=== PATIENT | female | born 1980 | race Caucasian/White ===

== ENCOUNTER → 2016-05-19 | Day surgery (SDC) | payer OTHER ==
[~2016-05-19] MED LIST: CLINDAMYCIN PHOS 900 MG/6 ML VIAL ONE; KETOROLAC TROMETHAMINE 30 MG/ML (IVP) VIAL ONE; LACTATED RINGER'S 1000 ML INJ 1,000 ML ONE; LIBRAX PO; LIDOCAINE 1%/EPINEPHrine 1:100,000 SOLN 30 ML VIAL ONE; MIDAZOLAM HCL 2 MG/2 ML VIAL ONE; OMEP20TA PO; ONDANSETRON HCL 4 MG/2 ML VIAL IV PUSH ONE; PRIL40CA PO; PROPOFOL 200 MG/20 ML AMP IV ONE; SODIUM BICARBONATE 8.4% INJ 50 ML ONE; SODIUM CHLORIDE 0.9% SOLN 100 ML BAG IV ONE; Z.0.BCPILL PO
--- NOTE | 2016-05-23 22:02 | MP ---
cc: MOOSE ROD DATE OF SURGERY 05/19/16 PREOPERATIVE DIAGNOSIS 1. Right upper neck lipoma mass attached to the occipitalis muscle. 2. Middle nape of the neck skin lesion POSTOPERATIVE DIAGNOSIS 1. Right upper neck lipoma mass attached to the occipitalis muscle. 2. Middle nape of the neck skin lesion OPERATION 1. Excision upper neck hairline lipoma 4 x 3 cm attached to the occipitalis muscle 2. Excision lesion middle nape of the neck 1.5 x [address] Desiree Rod ANESTHESIA General INDICATIONS A 35-year-old white female with the above two growths, has been present for several months and becoming larger and more symptomatic. The skin lesion is constantly itchy and does not go away for a couple of months as well. 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 The patient was explained the overall surgery details and possible risks, complications, pros and cons and she is willing to go ahead with the surgery. The lipoma may be multilobulated, dumbbell shape or through the fascia and there is a chance of recurrence in the future. The pathology of the second lesion will decide if there is any further treatment needed. PROCEDURE IN DETAIL The patient was brought to the operating room was given supine position. Anesthesia was started. She was turned left side down with adequate padding. Prep and drape was done. The time-out was called and completed. Preoperative markings were reinforced. Local anesthetic was used in both areas. The neck hairline lipoma was excised through a long oblique incision to match the direction of the lipoma itself. The lipoma was easily exposed on the outer surface and carefully dissected on the periphery looking for neurovascular bundles in particular. They were not encountered. The base of the lipoma was adherent to the fascia over the occipitalis muscle and this fascia was taken with the specimen taking a small portion of the muscle with the specimen as well. The entire area was double-checked for any obvious lobulated lesions. A couple of small spots were removed and no deep lipoma beyond the occipitalis muscle and the fascia was noted. The area was closed with three-point deeper sutures to close the fascia and the dermis and also the skin was closed with a subcuticular running Prolene. The second lesion was excised in an oval fashion down to the underlying fat and the cavity again closed with Vicryl sutures. A single outside mattress suture was also placed to approximate the skin. The patient remained stable. Intraoperative blood loss less than a couple of cc. No complications. signed, not fully reviewed MD ALICIA Farias/ /11:13 AM /9:55 PM MTDNancy
== END | disposition home or self-care (01) ==
LOC: ESDC 08:29
PROVIDERS: ATTEND Plastic Surgery
DX: D17.0 Benign lipomatous neoplasm of skin and subcutaneous tissue of head, face and neck (principal); L98.8 Other specified disorders of the skin and subcutaneous tissue
CPT/HCPCS: 00300; 11422; 21552; 88304; 88305; J1885; J2250; J2405; J3010; J7120

== ENCOUNTER → 2017-05-27 | Outpatient (CLI) | payer OTHER ==
[~2017-05-27] MED LIST changes: -CLINDAMYCIN PHOS 900 MG/6 ML VIAL ONE; -KETOROLAC TROMETHAMINE 30 MG/ML (IVP) VIAL ONE; -LACTATED RINGER'S 1000 ML INJ 1,000 ML ONE; -LIDOCAINE 1%/EPINEPHrine 1:100,000 SOLN 30 ML VIAL ONE; -MIDAZOLAM HCL 2 MG/2 ML VIAL ONE; -ONDANSETRON HCL 4 MG/2 ML VIAL IV PUSH ONE; -PROPOFOL 200 MG/20 ML AMP IV ONE; -SODIUM BICARBONATE 8.4% INJ 50 ML ONE; -SODIUM CHLORIDE 0.9% SOLN 100 ML BAG IV ONE
--- NOTE | 2017-06-01 10:13 | RSPPFT ---
DATE OF PROCEDURE: 05/27/17 COMMENTS: Spirometry shows FVC of 3.2 at 83% of predicted, FEV1 of 2.6 at 82%, FEV1/FVC ratio is normal. Flow is normal at FEF 25, FEF 50, FEF 75 and FEF 25-75. There is no response after bronchodilator treatment. Lung volumes show residual volume is normal. TLC is normal. Diffusion capacity is normal. Flow volume loop indicates a normal patter. Room air arterial blood gases pH of 7.42, PCO2 of 37, PO2 of 89, BiCarb of 24 and O2 saturation at 95%. IMPRESSION: 1. Normal spirometry. 2. No response after bronchodilator treatment. 3. Normal lung volumes. 4. Normal diffusion capacity. 5. Blood gases show normal oxygenation.
== END ==
LOC: HRSP 13:23
PROVIDERS: ATTEND Specialist
DX: R91.1 Solitary pulmonary nodule (principal)
CPT/HCPCS: 36600; 82805; 94060; 94726; 94729

== ENCOUNTER → 2017-06-07 | Outpatient (CLI) | payer OTHER ==
[~2017-06-07] MED LIST changes: +CETI10 PO; +DOCU1CAP26 PO; +LACTCAP8 PO; +MULTTAB67 PO; +OXYC1TAB35 PO
[2017-06-07 14:13] LABS: HEMATOCRIT 40.9 % (35.0-46.0); HEMOGLOBIN 13.8 GM/DL (11.6-15.3); MEAN CORPUSCULAR HEMOGLOBIN 29.6 PG (27.0-34.0); MEAN CORPUSCULAR HGB CONC 33.7 % (32.0-36.0); MEAN PLATELET VOLUME 9.8 FL (7.0-11.0); PLATELET COUNT 282 TH/MM3 (150-450); RED BLOOD COUNT 4.64 MIL/MM3 (4.00-5.30); RED CELL DISTRIBUTION WIDTH 13.9 % (11.6-17.2)
[2017-06-07 14:42] LABS: BACTERIA, URINE OCC /hpf; BILIRUBIN, URINE NEG (NEG); BLOOD, URINE LARGE (NEG); GLUCOSE,URINE NEG (NEG); KETONE, URINE NEG (NEG); MUCUS URINE FEW /lpf (OCC); NITRITE,URINE NEG (NEG); PH, URINE 7.5 (5.0-8.5); SQUAMOUS EPITHELIAL CELL URINE 15 /hpf (0-5); URINE COLOR YELLOW (YELLW/STRAW); URINE LEUKOCYTE ESTERASE TRACE (NEG)
[2017-06-07 14:42] LABS: BICARBONATE 29.1 MEQ/L (21.0-32.0); BLOOD UREA NITROGEN 7 MG/DL (7-18); CALCIUM 8.8 MG/DL (8.5-10.1); CHLORIDE 105 MEQ/L (98-107); CREATININE 0.52 MG/DL (0.50-1.00); GLOMERULAR FILTRATION RATE 134 ML/MIN (>89); GLUCOSE,FASTING 68 MG/DL (74-99); SODIUM (NA) 140 MEQ/L (136-145)
--- NOTE | 2017-06-07 15:17 | RADRPT ---
EXAM DATE/TIME: 06/07/2017 14:27 [facility] COMPARISON: CHEST PA & LAT, May 24, 2013, 7:51. INDICATIONS : Evaluate for pneumothorax, pneumonia, and communicable disease. Pre-op, thoracotomy. MEDICAL HISTORY : Carcinoma, lung. SURGICAL HISTORY : None. ENCOUNTER: Initial ACUITY: 1 day PAIN SCORE: 0/10 LOCATION: Bilateral chest FINDINGS: Perihilar mass is seen on the left. Right lung clear. The heart and pulmonary vascularity are normal . The portion of the bony skeleton visualized is unremarkable. CONCLUSION: Perihilar mass on the left, preop for carcinoma the lung. Jose G Walker MD FACR on June 07, 2017 at 15:13 Board Certified Radiologist. This report was verified electronically.
--- NOTE | 2017-06-08 18:23 | EKG ---
Date Performed: 06/07/2017 Time Performed: 12:39:29 PTAGE: 36 years EKG: Sinus rhythm NORMAL ECG NO PREVIOUS TRACING DOCTOR: Rufino Gillespie Interpretating Date/Time 06/08/2017 18:31:04
== END ==
LOC: CPRE 11:52
PROVIDERS: ATTEND Thoracic Surgery (Cardiothoracic Vascular Surgery)
DX: Z01.810 Encounter for preprocedural cardiovascular examination (principal); Z01.811 Encounter for preprocedural respiratory examination; Z01.812 Encounter for preprocedural laboratory examination; C34.2 Malignant neoplasm of middle lobe, bronchus or lung
CPT/HCPCS: 36415; 71046; 80048; 81001; 84703; 85027; 85610; 85730; 93005

== ENCOUNTER 2017-06-10 05:06 | Inpatient (IN) | payer OTHER ==
[~2017-06-10] VITALS: Ht 175.3 cm; Wt 108.5 kg
[2017-06-10] VITALS (11 sets, daily range): BP systolic 126–138; BP diastolic 65–85; PULSE 78–96; RESP 20; TEMP 98–98.2; O2SAT 95–98
[~2017-06-10 05:06] MED LIST changes: -DOCU1CAP26 PO; -LIBRAX PO; -OMEP20TA PO; -OXYC1TAB35 PO; -PRIL40CA PO; -Z.0.BCPILL PO
[2017-06-10] MEDS ORDERED: LACTATED RINGER'S 1000 ML IV PRN (05:30)
[2017-06-10] MEDS ORDERED: SODIUM CHLORID 0.9% 500 ML IV PRN (05:30)
[2017-06-10] MEDS ORDERED: INSULIN HUMAN REGULAR 1,000 UNITS/10 ML VIAL SQ PRN (05:30)
[2017-06-10] MEDS ORDERED: CHLORHEXIDINE GLUCONATE 2 % 1 PACK (2 CLOTHS) TOPICAL PRN (05:30)
[2017-06-10] MEDS ORDERED: POVIDONE IODINE 5% (ANTISEPSIS KIT) 4 APPLICATIONS EACH NARE PRN (05:30)
[2017-06-10] MEDS ORDERED: METOPROLOL TARTRATE 25 MG TAB PO PRN (05:30)
[2017-06-10] MEDS ORDERED: SUGAMMADEX SODIUM 200 MG/2 ML VIAL IV PUSH ONE (06:47)
[2017-06-10] MEDS ORDERED: ACETAMINOPHEN 1000 MG/100 ML 100 ML IV ONE (06:47)
[2017-06-10] MEDS ORDERED: APREPITANT 40 MG CAP ONE (07:13)
[2017-06-10] MEDS ORDERED: FAMOTIDINE 20 MG/2 ML VIAL ONE (07:13)
[2017-06-10] MEDS ORDERED: VANCOMYCIN HCL 1000 MG VIAL ONE (07:18)
[2017-06-10] MEDS ORDERED: BUPIVACAINE LIPOSO PF 1.3% INJ 20 ML, DEXAMETHASONE INJ 4 MG, MORPHINE INJ 8 MG in SODI... IRRIGATION SCH (08:00)
[2017-06-10] MEDS ORDERED: ONDANSETRON HCL 4 MG/2 ML VIAL IV PUSH ONE (12:00)
[2017-06-10] MEDS ORDERED: PROPOFOL 200 MG/20 ML AMP IV ONE (12:00)
[2017-06-10] MEDS ORDERED: ePHEDrine/NS 25 MG/5 ML SYRINGE IV ONE (12:00)
[2017-06-10] MEDS ORDERED: SODIUM CHLOR 0.9% 250 ML INJ 250 ML IV ONE (12:00)
[2017-06-10] MEDS ORDERED: ROCURONIUM INJ 50 MG/5 ML SYRINGE IV PUSH ONE (12:00)
[2017-06-10] MEDS ORDERED: LIDOCAINE HCL 1% PF 5 ML SYRINGE OTHER ONE (12:00)
[2017-06-10] MEDS ORDERED: KETOROLAC TROMETHAMINE 30 MG/ML (IVP) VIAL IV PUSH ONE (12:00)
[2017-06-10] MEDS ORDERED: DEXAMETHASONE SOD PHOS 4 MG/ML VIAL IV ONE (12:00)
[2017-06-10] MEDS ORDERED: PHENYLEPH/NS 1000 MCG/10 ML SYR IV ONE (12:00)
[2017-06-10] MEDS ORDERED: NORMOSOL R INJ 1,000 ML IV ONE (12:00)
[2017-06-10] MEDS ORDERED: NALOXONE HCL 0.4 MG/ML AMP IV PUSH PRN (12:30)
[2017-06-10] MEDS ORDERED: RESP: ALBUTEROL 2.5 MG/3 ML NEB (PRN) NEB (12:30)
[2017-06-10] MEDS ORDERED: SODIUM CHLORIDE 0.9% FLUSH 10 ML FLUSH IV FLUSH PRN (12:30)
[2017-06-10] MEDS ORDERED: Post-op Orders (for Pharmacy) OTHER ONE (12:30)
[2017-06-10] MEDS ORDERED: ACETAMINOPHEN 325 MG TAB PO PRN (12:30)
[2017-06-10] MEDS ORDERED: MIDAZOLAM HCL 2 MG/2 ML VIAL ONE (12:39)
--- NOTE | 2017-06-10 12:41 | PD.OP ---
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 Traylor Surgeon: Serena Kwon Licensed Veterinary Technician(s): GIANA Roger Operation and Findings: Specimen: Left upper lobe, bronchial margin, 2 - level 9 lymph nodes Drains: 32 F chest tube @OPNOTEHEAD@ Procedure Details After adequate general anesthesia the patient was placed in the right lateral decubitus position and the left chest was prepped and draped in usual manner. A small posterolateral thoracotomy incision was performed and electrocautery was used to obtain hemostasis and carry the dissection down through the latissimus dorsi. The serratus anterior was retracted anteriorly and the 5th intercostal space was entered under direct vision and selective single lung ventilation. An Ventura retractor was placed after shingling the 5th rib posteriorly. Exploration of the left hemithorax was significant for a ~4-5 cm hilar mass in the left upper lobe. The major fissure was developed using electrocautery and sharp dissection. The pleural reflection was divided anteriorly from the major fissure up and around posteriorly. The segmental arterial branches were ligated and divided using a vascular stapler. The left superior pulmonary vein was isolated and divides using a endo-LAURE vascular stapler. The left upper lobe bronchus was isolated and divided using an endo LAURE stapler. The specimen was submitted to pathology for frozen section. The bronchial margin appeared grossly positive and this was confirmed by Pathology. Therefore, a bronchoplastic resection of the upper lobe ostia was performed. This additional bronchial segment was submitted to Pathology and the margin was free of tumor. The bronchus was repaired using interrupted 4-0 PDS suture and a pericardial flap was created to cover the bronchial repair.. Additionally, two level 9 lymph nodes were resected and submitted for permanent section. One was found in the major fissure and the other adjacent to the left upper lobe bronchus. A 32 [place] chest tube was then placed through separate stab incision anteriorly and secured with 0 silk suture. Exparel was infiltrated in the 4-6th interspace posteriorly. for postoperative analgesia. The lung was ventilated and no significant air leaks were found. The wound was closed in layers approximately in the ribs initially with a 2. Vicryl [id number] suture. The latissimus dorsi was reapproximated using a running 0 Vicryl suture. The subcutaneous tissues approximated running 2-0 Vicryl suture and the skin was approximated using running 4-0 Monocryl subcuticular stitch. All sponges history counts were correct at the close the procedure and the patient was transferred to the PACU for recovery purposes. Serena Kwon MD Jun 10, 2017 12:41
[2017-06-10] MEDS ORDERED: *morphine SULFATE 4 MG/ML PERIprocedure ONLY ONE (12:44)
[2017-06-10] MEDS ORDERED: *ONDANSETRON 4 MG VIAL PERIprocedural Use ONLY ONE (12:45)
[2017-06-10] MEDS: MORPHINE SULFATE 30 MG/30 ML PCA IV SCH (13:10)
[2017-06-10] MEDS ORDERED: DO NOT ADM ANY ANTICOAGULANT DRUGS PRN (14:00)
[2017-06-10] MEDS: PCA - TOTAL MG MORPHINE DELIVERED PER SHIFT SCH ×2 (14:00→22:00)
--- NOTE | 2017-06-10 14:15 | RADRPT ---
EXAM DATE/TIME: 06/10/2017 12:54 [facility] COMPARISON: CHEST PA & LAT, June 07, 2017, 14:27. INDICATIONS : Post thoracotomy MEDICAL HISTORY : Carcinoma, lung. SURGICAL HISTORY : None. ENCOUNTER: Initial ACUITY: 1 day PAIN SCORE: Non-responsive. LOCATION: Bilateral chest FINDINGS: There has been interval left thoracotomy. Left thoracostomy tube is present good position. No pneumot horax. Lungs are symmetrically aerated. Cardiac contour is satisfactory. Left posterior fifth rib def ect is present from the surgery. CONCLUSION: Satisfactory postoperative appearance. Tab Hugo MD on June 10, 2017 at 13:41 Board Certified Radiologist. This report was verified electronically.
[2017-06-10] MEDS: ACETAMINOPHEN 1000 MG/100 ML 100 ML IV SCH ×2 (15:00→21:02)
[2017-06-10] MEDS: KETOROLAC TROMETHAMINE 30 MG/ML (IVP) VIAL IV PUSH SCH (17:04)
[2017-06-10] MEDS: ONDANSETRON HCL 4 MG/2 ML VIAL IV PUSH PRN (18:14)
[2017-06-10] MEDS: VANCOMYCIN INJ 1,000 MG in SODIUM CHLOR 0.9% 250 ML INJ 250 ML IV SCH (21:00)
[2017-06-10] MEDS: DOCUSATE CALCIUM 240 MG CAP PO SCH (21:01)
[2017-06-10] MEDS: PANTOPRAZOLE SOD 40 MG DELAYED RELEASE TAB PO SCH (21:01)
[2017-06-10] MEDS: SODIUM CHLORIDE 0.9% FLUSH 10 ML FLUSH IV FLUSH SCH (21:01)
[2017-06-10] MEDS: LACTATED RINGER'S 1000 ML INJ 1,000 ML IV SCH (22:00)
[2017-06-10] MEDS: RESP: BUDESONIDE 0.5 MG/2 ML NEB NEB SCH (22:05)
[2017-06-11] VITALS (23 sets, daily range): BP systolic 124–133; BP diastolic 56–81; PULSE 62–100; RESP 16–18; TEMP 97.7–98.6; O2SAT 96–98
[2017-06-11] MEDS: KETOROLAC TROMETHAMINE 30 MG/ML (IVP) VIAL IV PUSH SCH ×3 (00:04→12:29)
[2017-06-11] MEDS: ACETAMINOPHEN 1000 MG/100 ML 100 ML IV SCH ×2 (03:37→08:46)
--- NOTE | 2017-06-11 05:39 | RADRPT ---
EXAM DATE/TIME: 06/11/2017 04:49 [facility] COMPARISON: CHEST SINGLE AP, June 10, 2017, 12:54. INDICATIONS : Evaluate post Thoracotomy MEDICAL HISTORY : Carcinoma, lung. SURGICAL HISTORY : None. ENCOUNTER: Subsequent ACUITY: 4 - 6 days PAIN SCORE: 7/10 LOCATION: Bilateral chest FINDINGS: Chest tube is present on the left side. Tiny subcutaneous emphysema is seen on the left. No definite pneumothorax is seen for technique. Mild right lung base atelectasis and/or infiltrate is seen. CONCLUSION: Mild right lung base atelectasis and/or infiltrate is seen. Leonel Villa MD on June 11, 2017 at 5:36 Board Certified Radiologist. This report was verified electronically.
[2017-06-11] MEDS: PCA - TOTAL MG MORPHINE DELIVERED PER SHIFT SCH ×3 (06:00→22:00)
[2017-06-11 06:12] LABS: AUTOMATED NEUTROPHIL # 10.1 TH/MM3 (1.8-7.7); BASOPHIL % 0.2 % (0.0-2.0); EOSINOPHIL % 0.3 % (0.0-4.0); HEMATOCRIT 38.7 % (35.0-46.0); HEMOGLOBIN 12.9 GM/DL (11.6-15.3); LYMPH % 19.1 % (9.0-44.0); LYMPHOCYTE # 2.7 TH/MM3 (1.0-4.8); MEAN CORPUSCULAR HEMOGLOBIN 29.6 PG (27.0-34.0); MEAN CORPUSCULAR HGB CONC 33.3 % (32.0-36.0); MEAN PLATELET VOLUME 9.3 FL (7.0-11.0); MONO % 9.4 % (0.0-8.0); MONOCYTE # 1.3 TH/MM3 (0-0.9); PLATELET COUNT 290 TH/MM3 (150-450); RED BLOOD COUNT 4.35 MIL/MM3 (4.00-5.30); WHITE BLOOD COUNT 14.2 TH/MM3 (4.0-11.0)
[2017-06-11 06:13] LABS: BICARBONATE 29.3 MEQ/L (21.0-32.0); CREATININE 0.65 MG/DL (0.50-1.00)
[2017-06-11] MEDS: RESP: BUDESONIDE 0.5 MG/2 ML NEB NEB SCH ×2 (07:37→22:43)
[2017-06-11] MEDS: VANCOMYCIN INJ 1,000 MG in SODIUM CHLOR 0.9% 250 ML INJ 250 ML IV SCH (08:45)
[2017-06-11] MEDS: CETIRIZINE HCL 10 MG TAB PO SCH (08:45)
[2017-06-11] MEDS: SODIUM CHLORIDE 0.9% FLUSH 10 ML FLUSH IV FLUSH SCH ×2 (08:45→21:07)
[2017-06-11] MEDS: MULTIVITAMIN TAB PO SCH (08:45)
[2017-06-11] MEDS: MORPHINE SULFATE 30 MG/30 ML PCA IV SCH (16:12)
--- NOTE | 2017-06-11 16:21 | PD.CAR.PN ---
CVT Progress Note Subjective/Hospital Course: 36 female/ hx of cough and wheezing about 2 months ago, presented to Dr Bravo having developed a left upper lobe mass. She underwent bronchoscopy and biopsy showed low grade carcinoid. She was electively admitted for surgery PMH: Migraine headaches , sinus surgery surgery: 06/10 Bronchoplastic resection of the left upper lobe, Left thoracotomy , Bronchoscopy path pending 06/11 up in chair, using SAP HANA DEVELOPER MS instructed on IS GI motility meds added Objective: GENERAL: A&O x 3 SKIN: Warm and dry. left posterior chest incision intact, left lateral chest tube in place HEAD: Normocephalic. EYES: No scleral icterus. No injection or drainage. NECK: Supple, trachea midline. No JVD or lymphadenopathy. CARDIOVASCULAR: Regular rate and rhythm without murmurs, gallops, or rubs. RESPIRATORY: Breath sounds equal bilaterally. No accessory muscle use. chest tube to wall suction, no air leak GASTROINTESTINAL: Abdomen soft, non-tender, nondistended. MUSCULOSKELETAL: No cyanosis, or edema. BACK: Nontender without obvious deformity. No CVA tenderness. Vital Signs Date Time Temp Pulse Resp B/P (MAP) Pulse Ox O2 Delivery O2 Flow Rate FiO2 06/11/17 16:12 16 06/11/17 15:03 97.7 89 16 124/67 (86) 98 06/11/17 15:03 90 06/11/17 14:28 81 06/11/17 14:00 16 06/11/17 13:29 16 06/11/17 13:02 100 06/11/17 12:18 88 06/11/17 11:19 89 06/11/17 11:19 97.8 82 18 132/56 (81) 97 06/11/17 10:57 89 06/11/17 09:53 62 06/11/17 09:34 16 06/11/17 08:52 16 06/11/17 08:00 97.7 89 18 130/67 (88) 96 06/11/17 08:00 83 06/11/17 06:00 79 06/11/17 06:00 16 06/11/17 05:00 76 06/11/17 04:00 72 06/11/17 03:00 98.4 86 126/70 (88) 98 06/11/17 03:00 80 06/11/17 02:00 85 06/11/17 01:00 72 06/11/17 00:00 74 06/10/17 23:00 88 06/10/17 23:00 98.0 88 138/85 (102) 97 06/10/17 22:12 95 21 06/10/17 22:00 18 06/10/17 22:00 88 06/10/17 21:00 96 06/10/17 20:00 92 06/10/17 19:00 78 06/10/17 19:00 98.2 87 130/83 (99) 96 06/10/17 18:00 90 06/10/17 17:00 82 Labs: Laboratory Tests Test 06/11/17 04:33 White Blood Count 14.2 TH/MM3 (4.0-11.0) Red Blood Count 4.35 MIL/MM3 (4.00-5.30) Hemoglobin 12.9 GM/DL (11.6-15.3) Hematocrit 38.7 % (35.0-46.0) Mean Corpuscular Volume 89.0 FL (80.0-100.0) Mean Corpuscular Hemoglobin 29.6 PG (27.0-34.0) Mean Corpuscular Hemoglobin Concent 33.3 % (32.0-36.0) Red Cell Distribution Width 14.0 % (11.6-17.2) Platelet Count 290 TH/MM3 (150-450) Mean Platelet Volume 9.3 FL (7.0-11.0) Neutrophils (%) (Auto) 71.0 % (16.0-70.0) Lymphocytes (%) (Auto) 19.1 % (9.0-44.0) Monocytes (%) (Auto) 9.4 % (0.0-8.0) Eosinophils (%) (Auto) 0.3 % (0.0-4.0) Basophils (%) (Auto) 0.2 % (0.0-2.0) Neutrophils # (Auto) 10.1 TH/MM3 (1.8-7.7) Lymphocytes # (Auto) 2.7 TH/MM3 (1.0-4.8) Monocytes # (Auto) 1.3 TH/MM3 (0-0.9) Eosinophils # (Auto) 0.0 TH/MM3 (0-0.4) Basophils # (Auto) 0.0 TH/MM3 (0-0.2) CBC Comment DIFF FINAL Differential Comment Blood Urea Nitrogen 11 MG/DL (7-18) Creatinine 0.65 MG/DL (0.50-1.00) Random Glucose 88 MG/DL (74-106) Calcium Level 9.0 MG/DL (8.5-10.1) Sodium Level 140 MEQ/L (136-145) Potassium Level 4.0 MEQ/L (3.5-5.1) Chloride Level 101 MEQ/L (98-107) Carbon Dioxide Level 29.3 MEQ/L (21.0-32.0) Anion Gap 10 MEQ/L (5-15) Estimat Glomerular Filtration Rate 104 ML/MIN (>89) Result Diagram: 06/11/17 0433 06/11/17 0433 Telemetry: NSR (1) s/p left thoracotomy Plan: IS, ezpap, acapella GI motility meds PT /OO CM to eval for HHc (2) 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
--- NOTE | 2017-06-11 16:24 | HHI.FF ---
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 Review post chest surgery instructions chest precautions, Activity, Elastic hose, Incision care, Driving, Incentive spirometry, Smoking, [place] , Work and other) 2. Need Betadine to paint incision 3. Medication reconciliation 4. Importance of follow up care/ check on appointments 5. Make calendar record temperature daily 6. When to call Home nurse, review instructions, phone list 7. Incentive Spirometry, demonstration Visit 1- Begin discharge instruction for patient family and/ or caregiver using teach back method- 1. Signs and symptoms of infection 2. Disease characteristics 3. Medicines and side effects 4. Foods and nutrition/ appetite 5. Infection control/ hand washing/ hygiene Visit 2- Continue teaching 1. Discharge instructions- include additional information on smoking cessation , Visit 3- Continue teaching- 1. Cough and deep breathing, incision monitoring. For any questions please call : / [facility] Cardiothoracic Surgery Incentive spirometry Q1 hr x 10, while awake, also use acapella device hourly whole awake chest wall incision Precautions: NO pushing or pulling, ( pt must use chest pillow to support chest with all activities and with coughing Daily incision care: ok to shower daily, no tub bath. Wash all incisions with liquid dial soap, clean wash cloth to each site, rinse and pat dry. Observe for any signs of infection, such as drainage which is dark yellow, rader, green or foul smelling. Immediately report to the surgeon any drainage from the chest incision, or legs, and for any abnormal drainage from the chest tube sites. Notify surgeon if any temp >101.5 degrees F. When specialty dressing removed/ or if you do not have one, continue to shower daily as above, then rinse and pat incision dry and paint with betadine daily x 5 days. Allow steri strips to fall off if you have any. Avoid lotions, creams, salves, oils, etc. for the first month F/U appointment: as per PR instructions: PCP in 2 weeks, CV surgeon 2 weeks, Log Chain Feeder 3-4 weeks For any questions regarding incisions/ dressing / meds / post op care or above Symptoms, Wednesday 8am-5pm Heart & Vascular Surgery Office ( Dr. Kearns & Dr. Kwon), After Hours / Nights (5pm -8am) Weekends and Holidays Please call [facility] ([facility]) Charge Nurse I have seen patient Kenia Ledbetter on 06/11/17. My clinical findings support the need for the requested home health care services because: Deconditioned w/ increased weakness I certify that my clinical findings support that this patient is homebound because: Post-op weakness Joselyn Claros Jun 11, 2017 16:23
[2017-06-11] MEDS: ONDANSETRON HCL 4 MG/2 ML VIAL IV PUSH PRN (18:24)
[2017-06-11] MEDS: PANTOPRAZOLE SOD 40 MG DELAYED RELEASE TAB PO SCH (21:07)
[2017-06-11] MEDS: DOCUSATE CALCIUM 240 MG CAP PO SCH (21:07)
[2017-06-11] MEDS: LACTATED RINGER'S 1000 ML INJ 1,000 ML IV SCH (22:19)
[2017-06-12] VITALS (26 sets, daily range): BP systolic 119–131; BP diastolic 58–72; PULSE 82–106; RESP 16–19; TEMP 98.2–98.7; O2SAT 96–100
[2017-06-12] MEDS: PCA - TOTAL MG MORPHINE DELIVERED PER SHIFT SCH (05:46)
[2017-06-12] MEDS: RESP: BUDESONIDE 0.5 MG/2 ML NEB NEB SCH ×2 (08:52→20:24)
[2017-06-12] MEDS: SODIUM CHLORIDE 0.9% FLUSH 10 ML FLUSH IV FLUSH SCH ×2 (09:00→21:28)
[2017-06-12] MEDS: MULTIVITAMIN TAB PO SCH (09:19)
[2017-06-12] MEDS: CETIRIZINE HCL 10 MG TAB PO SCH (09:19)
--- NOTE | 2017-06-12 10:44 | PD.CAR.PN ---
CVT Progress Note CVT: POD #: 2 Subjective/Hospital Course: 36 female/ hx of cough and wheezing about 2 months ago, presented to Dr Bravo having developed a left upper lobe mass. She underwent bronchoscopy and biopsy showed low grade carcinoid. She was electively admitted for surgery PMH: Migraine headaches , sinus surgery surgery: 06/10 Bronchoplastic resection of the left upper lobe, Left thoracotomy , Bronchoscopy path pending 06/11 up in chair, using SPECIAL EDUCATION PRESCHOOL TEACHER MS instructed on IS GI motility meds added 06/12/17 c/o incisional pain, doing well Objective: Vital Signs Date Time Temp Pulse Resp B/P (MAP) Pulse Ox O2 Delivery O2 Flow Rate FiO2 06/12/17 10:00 85 06/12/17 09:00 94 06/12/17 08:52 98 21 06/12/17 08:00 94 06/12/17 07:00 98.7 97 19 127/71 (89) 96 06/12/17 07:00 90 06/12/17 06:00 88 06/12/17 05:46 16 06/12/17 05:00 87 06/12/17 04:00 94 06/12/17 03:00 86 06/12/17 03:00 98.5 82 130/66 (87) 98 06/12/17 02:00 100 06/12/17 01:00 88 06/12/17 00:00 88 06/11/17 23:00 92 06/11/17 23:00 98.1 92 133/81 (98) 96 06/11/17 22:44 97 21 06/11/17 22:00 90 06/11/17 22:00 16 06/11/17 21:00 84 06/11/17 20:00 86 06/11/17 19:00 86 06/11/17 19:00 98.6 87 128/78 (95) 98 06/11/17 18:27 83 06/11/17 16:20 93 06/11/17 16:20 16 06/11/17 16:12 16 06/11/17 15:03 97.7 89 16 124/67 (86) 98 06/11/17 15:03 90 06/11/17 14:28 81 06/11/17 14:00 16 06/11/17 13:29 16 06/11/17 13:02 100 06/11/17 12:18 88 06/11/17 11:19 89 06/11/17 11:19 97.8 82 18 132/56 (81) 97 06/11/17 10:57 89 Result Diagram: 06/11/1743206/11/17432 Cardiovascular: RRR Telemetry: NSR Pulmonary: CTA GI/: NABS, NT Incision: dry and intact CT: 130ml/12 hrs, no air leak Plan: Chest tube to water seal CXR in AM D/C SPECIAL EDUCATION PRESCHOOL TEACHER Encourage ambulation, up to chair Poss D/C tomorrow (1) s/p left thoracotomy Plan: IS, ezpap, acapella GI motility meds PT /OO CM to eval for HHc (2) 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
[2017-06-12] MEDS: oxyCODONE/ACETAMINOPHEN 7.5 MG/325 MG TAB PO PRN ×2 (14:43→21:28)
[2017-06-12] MEDS: PANTOPRAZOLE SOD 40 MG DELAYED RELEASE TAB PO SCH (21:27)
[2017-06-12] MEDS: MAGNESIUM HYDROXIDE SUSP 30 ML CUP PO PRN (21:29)
[2017-06-12] MEDS: LACTATED RINGER'S 1000 ML INJ 1,000 ML IV SCH (22:00)
[2017-06-13] VITALS (28 sets, daily range): BP systolic 114–122; BP diastolic 56–66; PULSE 74–106; RESP 16; TEMP 97.5–98.1; O2SAT 95–100
[2017-06-13] MEDS: oxyCODONE/ACETAMINOPHEN 7.5 MG/325 MG TAB PO PRN ×4 (02:10→19:33)
[2017-06-13] MEDS: DOCUSATE CALCIUM 240 MG CAP PO SCH ×2 (02:19→19:32)
--- NOTE | 2017-06-13 04:53 | RADRPT ---
EXAM DATE/TIME: 06/13/2017 04:28 [facility] COMPARISON: CHEST SINGLE AP, June 11, 2017, 4:49. INDICATIONS : Shortness of breath, possible pulmonary disease. MEDICAL HISTORY : Carcinoma, lung. SURGICAL HISTORY : Thoracotomy ENCOUNTER: Subsequent ACUITY: 1 week PAIN SCORE: 3/10 LOCATION: Bilateral chest FINDINGS: A single view of the chest demonstrates a left-sided chest tube with tiny left pneumothorax. Basilar atelectasis there is no effusion. Heart size within normal limits. CONCLUSION: 1. Left-sided chest tube with tiny left pneumothorax. Basilar atelectasis. Jax Lewis MD on June 13, 2017 at 4:50 Board Certified Radiologist. This report was verified electronically.
[2017-06-13] MEDS: MULTIVITAMIN TAB PO SCH (08:01)
[2017-06-13] MEDS: CETIRIZINE HCL 10 MG TAB PO SCH (08:01)
[2017-06-13] MEDS: SODIUM CHLORIDE 0.9% FLUSH 10 ML FLUSH IV FLUSH SCH ×2 (08:01→19:32)
[2017-06-13] MEDS: RESP: BUDESONIDE 0.5 MG/2 ML NEB NEB SCH ×2 (08:44→20:00)
--- NOTE | 2017-06-13 11:32 | PD.CAR.PN ---
CVT Progress Note CVT: POD #: 3 Subjective/Hospital Course: 36 female/ hx of cough and wheezing about 2 months ago, presented to Dr Bravo having developed a left upper lobe mass. She underwent bronchoscopy and biopsy showed low grade carcinoid. She was electively admitted for surgery PMH: Migraine headaches , sinus surgery surgery: 06/10 Bronchoplastic resection of the left upper lobe, Left thoracotomy , Bronchoscopy path pending 06/11 up in chair, using TANK BOTTOM ASSEMBLER MS instructed on IS GI motility meds added 06/12/17 c/o incisional pain, doing well 06/13/17 c/o incisional pain Objective: Vital Signs Date Time Temp Pulse Resp B/P (MAP) Pulse Ox O2 Delivery O2 Flow Rate FiO2 06/13/17 10:00 98 06/13/17 09:00 74 06/13/17 08:00 90 06/13/17 07:43 98.0 91 16 119/56 (77) 100 06/13/17 07:00 86 06/13/17 06:00 93 06/13/17 05:00 86 06/13/17 04:00 96 06/13/17 03:00 81 06/13/17 03:00 97.5 85 16 115/66 (82) 97 06/13/17 02:00 90 06/13/17 01:00 92 06/13/17 00:00 90 06/12/17 23:00 94 06/12/17 23:00 98.7 92 16 120/68 (85) 97 06/12/17 22:00 98 06/12/17 21:00 104 06/12/17 20:52 98.7 104 16 119/58 (78) 97 06/12/17 20:00 101 06/12/17 19:00 101 06/12/17 18:00 104 06/12/17 17:00 101 06/12/17 16:00 90 06/12/17 15:55 16 06/12/17 15:00 102 06/12/17 15:00 98.2 94 16 131/72 (91) 97 06/12/17 14:00 100 06/12/17 13:00 106 06/12/17 12:00 99 Result Diagram: 06/11/17 0433 06/11/17 0433 Imaging: Last 24 hours Impressions Chest X-Ray 06/13/17 0600 Signed Impressions: Service Date/Time: Tuesday, June 13, 2017 04:28 - CONCLUSION: 1. Left- sided chest tube with tiny left pneumothorax. Basilar atelectasis. 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
[2017-06-13] MEDS: MAGNESIUM HYDROXIDE SUSP 30 ML CUP PO PRN (15:00)
[2017-06-13] MEDS: PANTOPRAZOLE SOD 40 MG DELAYED RELEASE TAB PO SCH (19:32)
[2017-06-13] MEDS: LACTATED RINGER'S 1000 ML INJ 1,000 ML IV SCH (19:36)
[2017-06-14] VITALS (14 sets, daily range): BP systolic 110–127; BP diastolic 57–60; PULSE 78–110; RESP 16–18; TEMP 97.3–99.6; O2SAT 97–100
[2017-06-14] MEDS: oxyCODONE/ACETAMINOPHEN 7.5 MG/325 MG TAB PO PRN (04:22)
[2017-06-14] MEDS ORDERED: EPINEPHrine HCL (1:10,000) 1 MG/10 ML SYRINGE ONE (05:07)
--- NOTE | 2017-06-14 06:12 | RADRPT ---
EXAM DATE/TIME: 06/14/2017 05:14 [facility] COMPARISON: CHEST PA & LAT, June 07, 2017, 14:27. INDICATIONS : Status post left thoracotomy and lobectomy. Evaluate for pneumothorax MEDICAL HISTORY : Carcinoma, lung. SURGICAL HISTORY : Thoracotomy ENCOUNTER: Subsequent ACUITY: 1 week PAIN SCORE: 6/10 LOCATION: Bilateral chest FINDINGS: PA and lateral views the chest were obtained and demonstrate the patient is status post left thoracot hudson with partial resection of the left posterior fifth rib. There is mild line loss and elevation of the left hemidiaphragm with blunting of the left costophrenic angle. There are no confluent infiltrat es or pneumothorax. The previously noted left suprahilar mass is no longer present. CONCLUSION: 1. Status post left thoracotomy and lobectomy with no evidence of pneumothorax. 2. Mild elevation left hemidiaphragm with blunting of the costophrenic angle. Will Kramer MD on June 14, 2017 at 6:09 Board Certified Radiologist. This report was verified electronically.
[2017-06-14] MEDS: RESP: BUDESONIDE 0.5 MG/2 ML NEB NEB SCH (07:37)
[2017-06-14] MEDS: MULTIVITAMIN TAB PO SCH (08:51)
[2017-06-14] MEDS: CETIRIZINE HCL 10 MG TAB PO SCH (08:51)
[2017-06-14] MEDS: SODIUM CHLORIDE 0.9% FLUSH 10 ML FLUSH IV FLUSH SCH (08:52)
[2017-06-14] MEDS: MAGNESIUM HYDROXIDE SUSP 30 ML CUP PO PRN (08:52)
[2017-06-14] MEDS ORDERED: OXYC1TAB35 PO (11:18)
[2017-06-14] MEDS ORDERED: DOCU1CAP26 PO (11:18)
--- NOTE | 2017-06-14 11:32 | HHI.DS ---
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 She underwent bronchoscopy and biopsy showed low grade carcinoid. She was electively admitted for surgery PMH: Migraine headaches , sinus surgery surgery: 06/10 Bronchoplastic resection of the left upper lobe, Left thoracotomy , Bronchoscopy CBC/BMP: 06/11/17 0433 06/11/17 0433 Significant Findings HISTOLOGIC TYPE: TYPICAL CARCINOID TUMOR. HISTOLOGIC GRADE: NOT APPLICABLE. SPREAD THROUGH AIR SPACES: NOT IDENTIFIED. VISCERAL PLEURAL INVASION: NOT IDENTIFIED. LYMPHOVASCULAR INVASION: NOT IDENTIFIED. DIRECT INVASION OF ADJACENT STRUCTURES: NO ADJACENT STRUCTURES PRESENT. MARGINS: ALL MARGINS UNINVOLVED BY CARCINOMA. THE BRONCHIAL RESECTION MARGIN IS POSITIVE FOR CARCINOMA ON THE LOBECTOMY SPECIMEN. ADDITIONAL BRONCHIAL MARGIN ( SPECIMENS #4 AND 5) ARE NEGATIVE FOR TUMOR. DISTANCE OF INVASIVE TUMOR FROM CLOSEST MARGIN CANNOT BE DETERMINED. VASCULAR MARGINS: UNINVOLVED BY THE LESION. REGIONAL LYMPH NODES: NUMBER OF LYMPH NODES INVOLVED: 0 NUMBER OF LYMPH NODES EXAMINED: 5 (0/5). THREE OF THESE LYMPH NODES ARE ATTACHED TO THE LOBECTOMY SPECIMEN. PATHOLOGIC STAGE CLASSIFICATION (pTNM, AJCC 8th Edition): pT2b, pN1. Imaging Last Impressions Chest X-Ray 06/14/17 0600 Signed Impressions: Service Date/Time: Wednesday, June 14, 2017 05:14 - CONCLUSION: 1. Status post left thoracotomy and lobectomy with no evidence of pneumothorax. 2. Mild elevation left hemidiaphragm with blunting of the costophrenic angle. Will Kramer MD PE at Discharge GENERAL: A&O x 3 SKIN: Warm and dry. left postero lateral chest incision intact HEAD: Normocephalic. EYES: No scleral icterus. No injection or drainage. NECK: Supple, trachea midline. No JVD or lymphadenopathy. CARDIOVASCULAR: Regular rate and rhythm without murmurs, gallops, or rubs. RESPIRATORY: Breath sounds equal bilaterally. No accessory muscle use. GASTROINTESTINAL: Abdomen soft, non-tender, nondistended. MUSCULOSKELETAL: No cyanosis, or edema. BACK: Nontender without obvious deformity. No CVA tenderness. Hospital Course surgery: 06/10 Bronchoplastic resection of the left upper lobe, Left thoracotomy , Bronchoscopy path pending 06/11 up in chair, using FLEX[employer]ACH[employer]ING [employer] MACHINIST MS instructed on IS GI motility meds added 06/12/17 c/o incisional pain, doing well 06/13/17 c/o incisional pain 06/14 ok to dc home today after pt has BM incision intact and well approximated path discussed with pt Pt Condition on Discharge: Good Discharge Disposition: Disch w/ Home Health Serv Discharge Instructions DIET: Follow Instructions for: As Tolerated, No Restrictions Activities you can perform: Full Weight Bearing, Shower Only-No Bath Activities to avoid: Strenuous Activity, Driving Additional Activity Instructio: `no lifting > 8 lbs or gallon of milk Follow up Referrals: PCP Follow-up - 2 Weeks with Kevan Paez MD Pulmonology - 4 Weeks with Adam Bravo MD Surgical - 2 Weeks with Serena Kwon MD New Medications: Docusate Calcium (Sm Stool Softener) 240 Mg Cap 240 MG PO HS for Constipation, #30 CAP 1 Refill Oxycodone HCl/Acetaminophen (Oxycodon-Acetaminophen 7.5-325) 7.5 Mg-325 Mg Tablet 1 TAB PO Q4H PRN for PAIN SCALE 1 TO 10, #40 TAB 0 Refills Continued Medications: Cetirizine (Cetirizine) 10 Mg Tab 10 MG PO DAILY for Allergies, TAB 0 Refills Lactobacillus Acidophilus (Probiotic) 10 Billion Cell Cap 1 CAP PO DAILY for Nutritional Supplement, #90 CAP 0 Refills Multiple Vitamin (Multiple Vitamin) 1 Tab 1 TAB PO DAILY for Nutritional Supplement, TAB 0 Refills Joselyn Claros Jun 14, 2017 11:32
[2017-06-14] MEDS ORDERED: SOD PHOSPHATE/SOD BIPHOSPHATE (ADULT) ENEMA 133ML PR ONE (12:00)
[2017-06-14] MEDS ORDERED: BISACODYL 10 MG SUPP RECTAL ONE (12:00)
== END 2017-06-14 13:46 | disposition home health service (06) | DRG 165 ==
LOC: HSDI 05:06 → HCPC 13:49
PROVIDERS: ADMIT Thoracic Surgery (Cardiothoracic Vascular Surgery); ATTEND Thoracic Surgery (Cardiothoracic Vascular Surgery)
PROC: 07B70ZX Excision of Thorax Lymphatic, Open Approach, Diagnostic (ICD-10-PCS; 2017-06-10)
PROC: 3E0T3BZ Introduction of Anesthetic Agent into Peripheral Nerves and Plexi, Percutaneous Approach (ICD-10-PCS; 2017-06-10)
PROC: 0BTG0ZZ Resection of Left Upper Lung Lobe, Open Approach (ICD-10-PCS; principal; 2017-06-10 07:32)
DX: D3A.090 Benign carcinoid tumor of the bronchus and lung (principal); G43.909 Migraine, unspecified, not intractable, without status migrainosus
CPT/HCPCS: 71045; 71046; 80048; 85025; 86850; 86900; 86901; 88307; 88309; 88331; 94150; 94640; 94664; C9290; J0131; J0171; J1100; J1885; J2250; J2270; J2370; J2405; J3010; J3370; J7050; J7120; J7626; J8501

== ENCOUNTER 2017-10-08 08:50 | Emergency (ER) | payer OTHER ==
[~2017-10-08 08:50] MED LIST changes: +DOCU1CAP26 PO; +OXYC1TAB35 PO
[2017-10-08 08:53] VITALS: BP 140/73; PULSE 88; RESP 20; TEMP 98.7; O2SAT 97
--- NOTE | 2017-10-08 09:12 | PD ---
HPI . Cough Chief Complaint: Cold / Flu Symptoms Time Seen by Provider: 09:05 Travel History International Travel<30 days: No Contact w/Intl Traveler<30days: No Traveled to known affect area: No History of Present Illness HPI This is a 37-year-old non-smoker who is status post resection of a carcinoid tumor from the left upper lobe of her lung who presents with the chief complaint of a cough. Onset was 2 days ago. Associated symptoms include stuffy nose, yellow rhinorrhea and sore throat. No fever. Symptoms have been persistent and getting gradually worse. Symptoms are mild. The patient is just concerned because of her previous history of carcinoid tumor. PFSH Past Medical History Cancer: Yes (Left upper lung low grade carcinoma) Cardiovascular Problems: No Diabetes: No Diminished Hearing: No Endocrine: No Gastrointestinal Disorders: Yes (IBS) GERD: Yes Genitourinary: No Hepatitis: No Hiatal Hernia: No Immune Disorder: No Musculoskeletal: No Neurologic: No Psychiatric: No Reproductive: No Respiratory: Yes (PARTIAL LEFT UPPER LOBECTOMY) Thyroid Disease: No ?: Not LMP: 3 WEEKS Past Surgical History Abdominal Surgery: No AICD: No Cardiac Surgery: No Ear Surgery: No Endocrine Surgery: No Eye Surgery: No Genitourinary Surgery: No Gynecologic Surgery: No Joint Replacement: No Oral Surgery: Yes (root canal and wisdom teeth) Pacemaker: No Thoracic Surgery: No Social History Alcohol Use: Yes (occ) Tobacco Use: No Substance Use: No Allergies-Medications (Allergen,Severity, Reaction): Coded Allergies: Sulfa (Sulfonamide Antibiotics) (Verified Allergy, Severe, hives , 10/08/17 ) cefaclor (Verified Allergy, Severe, hives , 10/08/17) erythromycin base (Verified Allergy, Severe, hives , 10/08/17) penicillin G (Verified Allergy, Severe, hives, 10/08/17) sulfisoxazole (Verified Allergy, Severe, hives , 10/08/17) lactose (Verified Allergy, Intermediate, intolerant , 10/08/17) Reported Meds & Prescriptions Reported Meds & Active Scripts Active Reported Ventolin Hfa 18 GM Inh (Albuterol Sulfate) 90 Mcg/Act Aer 2 Puff INH Q4-6H PRN Cetirizine (Cetirizine HCl) 10 Mg Tab 10 Mg PO DAILY Review of Systems Except as stated in HPI: all other systems reviewed are Neg Physical Exam Narrative GENERAL: Healthy-appearing 37-year-old woman in no acute distress. SKIN: warm/dry. HEAD: Normocephalic. Atraumatic. EYES: Pupils equal and round. Extraocular movements are intact. ENT: Mucous membranes pink and moist. No erythema of the oropharynx. NECK: Supple. Full range of motion without pain. No cervical lymphadenopathy.. CARDIOVASCULAR: Regular rate and rhythm. Heart sounds are normal. RESPIRATORY: No accessory muscle use. End inspiratory wheezing bibasilarly. Breath sounds equal bilaterally. Good air movement. MUSCULOSKELETAL: No obvious deformities. Normal muscle tone. NEUROLOGICAL: Awake and alert. No obvious cranial nerve deficits. Motor grossly within normal limits. Normal speech. PSYCHIATRIC: Appropriate mood and affect; insight and judgment normal. Data Data Last Documented VS Vital Signs Date Time Temp Pulse Resp B/P (MAP) Pulse Ox O2 Delivery O2 Flow Rate FiO2 10/08/17 09:15 Room Air 10/08/17 08:53 98.7 88 20 140/73 (95) 97 Orders Orders Ed Urine Pregnancytest Poc (10/08/17 09:05) Chest, Pa & Lat (10/08/17 09:05) Albuterol-Ipratropium Neb (Duoneb Neb) (10/08/17 09:15) MDM Medical Decision Making Medical Screen Exam Complete: Yes Emergency Medical Condition: Yes Differential Diagnosis Differential diagnosis includes but is not limited to viral respiratory illness , bronchitis, pneumonia, allergies, CHF, asthma/COPD. Narrative Course Patient presents with a chief complaint of a cough. She is concerned about her cough because she has a history of a carcinoid tumor in the left upper lobe of her lung status post resection in May. She does have some end inspiratory wheezing in her bases. She will be given a breathing treatment. Chest x-ray is pending. Last Impressions Chest X-Ray 10/08/17 09 Signed Impressions: CONCLUSION: No acute cardiopulmonary disease. The chest x-ray was independently viewed by me. She will be treated for bronchitis. I will encourage her to use her MDI every 4 hours as needed. I will add prednisone. I will suggest Mucinex. Diagnosis Primary Impression: Cough Additional Impression: Upper respiratory infection Qualified Codes: J06.9 - Acute upper respiratory infection, unspecified Additional Instructions: Use your MDI every 4 hours as needed. Take guaifenesin long acting 1200 mg twice a day. Mucinex is a trade name. Just make sure that you get the long acting plain Mucinex. Prednisone as directed. I recommend the use of a Neti Pot. You may use a nasal spray such as Afrin for up to 3 days as needed for nasal congestion. You may take an [id number]-mvl-tmnabhz antihistamine such as Zyrtec, Misty or Claritin as needed for runny secretions. You may take pseudoephedrine as needed for congestion. You will need to sign for this at the pharmacy. You may take plain Mucinex, 1200 mg twice a day as needed for thick secretions. You may take a cough syrup such as Delsym as needed for cough. Motrin as needed for fever and body aches. Throat lozenges/sprays as needed for sore throat. Warm salt water gargles for sore throat. Hot tea with lemon and honey also helps soothe a sore throat. Med/Other Pt SpecificInfo: Prescription(s) given Scripts Prednisone (Prednisone) 50 Mg Tab 50 MG PO DAILY for 5 Days, #5 TAB 0 Refills Prov: Danyell Ca MD 10/08/17 Disposition: 01 DISCHARGE HOME Condition: Stable Danyell Ca MD Oct 08, 2017 09:12
[2017-10-08] MEDS ORDERED: VENTAER INH (09:14)
[2017-10-08] MEDS ORDERED: RESP: ALBUTEROL 2.5 MG/IPRATROPIUM 0.5 MG NEB (SCH) INH ONE (09:15)
--- NOTE | 2017-10-08 10:06 | RADRPT ---
EXAM DATE: 10/08/2017 9:57 AM EDT AGE/SEX: 37 years / Female INDICATIONS: Cough and wheezing CLINICAL DATA: This is the patient's initial encounter. Patient reports that signs and symptoms have been present for 2 days and indicates a pain score of 0/10. MEDICAL/SURGICAL HISTORY: Carcinoma, lung. Lobectomy. COMPARISON: [facility] [place], CHEST PA & LAT, 06/14/2017. . FINDINGS: PA and lateral views of the chest demonstrate the lungs to be symmetrically aerated without evidence of mass, infiltrate or effusion. The cardiomediastinal contours are unremarkable. An old fracture inv olving the left posterior fifth rib. There is lack of union. CONCLUSION: No acute cardiopulmonary disease. Electronically signed by: Prince Ortiz MD 10/08/2017 10:05 AM EDT
[2017-10-08] MEDS ORDERED: PRED50 PO (10:21)
== END 2017-10-08 10:33 | disposition home or self-care (01) ==
LOC: PHEFT 08:50
DX: R05 Cough (principal); R06.9 Unspecified abnormalities of breathing; J40 Bronchitis, not specified as acute or chronic; J02.9 Acute pharyngitis, unspecified; K58.9 Irritable bowel syndrome, unspecified; K21.9 Gastro-esophageal reflux disease without esophagitis; Z85.110 Personal history of malignant carcinoid tumor of bronchus and lung
CPT/HCPCS: 71046; 84703; 94664; 99283